=== PATIENT | female | born 2000 | race African-American/Black ===

== ENCOUNTER 2023-11-11 12:02 | Outpatient (REF) | payer BC, SELFPAY ==
[2023-11-11 13:53] LABS: Estimated Average Glucose 103 mg/dL; Hemoglobin A1c % 5.2 % (<6.0)
[2023-11-11 14:01] LABS: Alanine Aminotransferase 12 U/L (0-31); Albumin Level 4.4 g/dL (3.5-5.0); Alkaline Phosphatase 61 U/L (39-117); Aspartate Amino Transferase 16 U/L (5-31); Bilirubin Direct 0.1 mg/dL (0.0-0.5); Bilirubin Total 0.4 mg/dL (0.0-1.0); Total Protein 8.1 g/dL (6.5-8.0)
[2023-11-11 14:08] LABS: Alanine Aminotransferase 12 U/L (0-31); Albumin Level 4.4 g/dL (3.5-5.0); Alkaline Phosphatase 60 U/L (39-117); Anion Gap 13 (12-20); Aspartate Amino Transferase 15 U/L (5-31); Bilirubin Total 0.4 mg/dL (0.0-1.0); Blood Urea Nitrogen 11 mg/dL (9-16); Calcium 9.3 mg/dL (8.4-10.2); Carbon Dioxide 24 mmol/L (22-29); Chloride 104 mmol/L (96-108); Cholesterol 155 mg/dL (<200); Estimated Glomerular Filt Rate > 60; Glucose Random 80 mg/dL (60-115); HDL Cholesterol 47 mg/dL (>40); LDL Cholesterol Calculated 95 mg/dL (<100); Potassium 3.4 mmol/L (3.3-5.1); Sodium 138 mmol/L (135-145); Total Protein 8.2 g/dL (6.5-8.0); Triglycerides 66 mg/dL (<150)
[2023-11-11 15:39] LABS: CT PCR NOT DETECTED (Not Detect.); NG PCR NOT DETECTED (Not Detect.)
[2023-11-12 08:27] LABS: Syphilis Screen Nonreactive (Nonreactive)
[2023-11-12 08:33] LABS: HIV AB/AG Nonreactive (Nonreactive); HIV Num 1 0.06 S/CO (0.00-0.99)
== END 2023-11-11 12:03 | disposition home or self-care (01) ==
LOC: HO.LAB 12:02
PROVIDERS: PCP Internal Medicine; Visit Provider Internal Medicine
DX: Z11.3 Encounter for screening for infections with a predominantly sexual mode of transmission (principal); E66.09 Other obesity due to excess calories; Z68.35 Body mass index [BMI] 35.0-35.9, adult; Z13.1 Encounter for screening for diabetes mellitus; Z13.89 Encounter for screening for other disorder
CPT/HCPCS: 36415; 80053; 80061; 80076; 83036; 84443; 86780; 87389; 87491; 87591

== ENCOUNTER 2025-03-21 10:03 | Outpatient (AMB) | payer OTHER, SELFPAY ==
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
[2025-03-21 10:12] VITALS: BMI 33.4
== END 2025-03-21 10:29 | disposition home or self-care (01) ==
LOC: HO.HGS 10:03
PROVIDERS: PCP Internal Medicine; Visit Provider Surgery
DX: S01.319A Laceration without foreign body of unspecified ear, initial encounter (principal)
CPT/HCPCS: 99203

== ENCOUNTER 2025-04-18 14:40 | Outpatient (AMB) | payer OTHER, SELFPAY ==
[2025-04-18 15:15] VITALS: BMI 34.5
--- NOTE | 2025-04-18 15:15 | A.OFFVIS_ITS ---
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 [facility] Medical History Torn earlobe Surgical History No pertinent past surgical history Family History Paternal Grandfather Pancreatic cancer Social History Patient Tobacco Use Status: Tobacco use Unknown Physical Exam Vital Signs: BMI result Body Mass Index 34.5 Office Procedures AMB Laceration Repair Details: Procedure: Repair of torn earlobe, right Preop diagnosis: Torn earlobe, right She was in supine position with the head turned to the left. The right earlobe was prepped and draped in the usual sterile fashion. The area was infiltrated with lidocaine 1%. I then used the blade 15 to excise the edges of the earlobe tear completely. I then proceeded to reapposed the skin on both the anterior aspect and the posterior aspect of the earlobe with multiple nylon 5 0 simple interrupted sutures. Dressings were applied. The procedure was completed. She tolerated procedure well. There were no immediate complications. There was minimal blood loss. Laceration repair performed by: Yinka Cantor Explained risks and benefits to parent: Yes Informed consent given: Yes Consent signed: Yes Sedation: No Anesthesia: 1% lidocaine Patient tolerated procedure: well Complications: No [id number] Repair 2.6-7.5cm Procedure code (CPT) selection complete Assessment & Plan Assessment & Plan (1) Torn earlobe: Code(s): S01.319A - Laceration without foreign body of unspecified ear, initial encounter Category: Medical Plan: Repair of her torn in lobe was done in the office under local anesthesia. She will return for removal sutures next week. She was given wound care instructions. Coding Level of Care Code Procedure Only Diagnoses Torkizzy kendall S01.319A CPT Codes Office Procedure - Laceration Repair 2: [id number] Repair 2.6-7.5cm ([id number])
--- OUTSIDE RECORDS SUMMARY | 2025-04-18 17:02 | XMS_ITS | Clinical Summary ---
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 Name Role Phone Romeo Vizcarra MD Primary Care Provider [phone] Allergies Active Allergy Reactions Criticality Noted Date Comments Amoxicillin Hives 12/15/2023 Medications No known medications Immunizations Immunization Administration Dates Next Due HPV 9-valent (Gardisil) 9yo to less than 46yo Pfizer SARS-CoV-2 COVID-19, mRNA, LNP-S, preservative free 09/12/2020,08/22/2020 Surgical History Surgery Date Site/Laterality Comments WISDOM TOOTH EXTRACTION 2018 PROCEDURE: HISTORICAL WISDOM TEETH EXTRACTION Medical History Medical History Date Comments Childhood asthma DX:Childhood as thma Prediabetes 07/08/2022 DX:Prediabetes Family History Medical History Relation Name Comments Asthma Brother 1 Asthma Mother Other cancer Paternal Grandfather stomach cancer Asthma Sister Relation Name Status Comments Brother 1 Alive Brother 2 Alive Father Alive Maternal Grandfather Alive Maternal Grandmother Alive Mother Alive Paternal Grandfather Alive Paternal Grandmother Alive Sister Alive Social History Tobacco Use Types Packs/Day Years Used Date Smoking Tobacco: Never Smokeless Tobacco: Never Tobacco Cessation:Counseling Given: Not Answered Alcohol Use Standard Drinks/Week Comments Not Asked 0 (1 standard drink = 0.6 oz pur e alcohol) Comments Unknown Sex and Gender Information Value Date Recorded Sex Assigned at Not on file Legal Sex Female 3:06 PM EST Gender Identity Not on file Sexual Orientation Not on file Last Filed Vital Signs Vital Sign Reading Time Taken Comments Blood Pressure 120/82 07/27/2024 5:06 PM EDT Pulse 89 07/27/2024 5:06 PM EDT Temperature 36.5 C (97.7 F) 07/27/2024 5:06 PM EDT Respiratory Rate - - Oxygen Saturation 98% 07/27/2024 5:06 PM EDT Inhaled Oxygen Concentration - - Weight 85.6 kg (188 lb 12.8 oz) 025 11:10 AM EST Height 160 cm (5' 3 ) 04/28/2024 11:10 AM EST Body Mass Index 33.44 04/28/2024 11:10 AM EST Plan of Treatment Health Maintenance Due Date Last Done Comments DTaP,Tdap,and Td Vaccines (1 - Tdap) 2017 Hepatitis B Vaccines (1 of 3 - 19+ 3-dose series) 2017 Meningococcal B Vaccine (2 o f 2 - Bexsero SCDM 2-dose series) 06/11/2018 12/09/2017 Cervical Cancer Screening: Pap Smear 09/24/2019 Social Influencers of Health Screening 03/31/2022 HPV Vaccines (2 - 3-dose series) 11/26/2023 10/29/2023 Depression Screening 04/21/2024 COVID-19 Vaccine (3 - 2024-2 6 season) 2024 09/12/2020, 08/22/2020 Influenza Vaccine (#1) 2024 Cholesterol Screening (Lipid Panel) 02/18/2027 02/18/2022 RSV Immunization Adult Patients (1 - 1-dose 75+ series) 2073 Meningococcal ACWY Vaccine Aged Out 12/09/2017 N o longer eligible based on patient's age to complete this topic Gonorrhea/Chlamydia Screening Discontinued 04/28/2024 HIV Screening Completed 04/28/2024 Hepatitis C Screening Completed 04/28/2024 HIB Vaccines Aged Out No longer eligi ble based on patient's age to complete this topic Hepatitis A Vaccines Aged Out No long er eligible based on patient's age to complete this topic IPV Vaccines Aged Out No longer eligi ble based on patient's age to complete this topic MMR Vaccines Aged Out No longer eligi ble based on patient's age to complete this topic Pneumococcal Vaccine: Pediatrics (0 to 5 Years) and At-Risk Patients (6 to 49 Years) Aged Out No longer eligible based on patient's age to complete this topic RSV Immunization Patients Under 20 months Aged Out No longer eligible based on patient's age to complete this topic Varicella Vaccines Aged Out No longer eligible based on patient's age to complete this topic Procedures Procedure Name Priority Date/Time Associated Diagnosis Comments HEPATITIS PANEL, ACUTE WITH REFLEX TO CONFIRMATION Routine 04/28/2024 11:30 AM EST Screen for STD (sexually transmitted disease) HIV 1, 2 ANTIBODY, P24 ANTIGEN WITH REFLEX TO DIFFERENTIATION Routine 04/28/2024 11:30 AM EST Screen for STD (sexually transmitted disease) CHLAMYDIA TRACHOMATIS AND NEISSERIA GONORRHOEAE PCR Routine 04/28/2024 11:30 AM EST Screen for STD (sexually transmitted disease) LIPID PANEL Routine 02/18/2022 from Last 3 Months or Most Recently Relevant to Health Maintenance Results * HIV 1,2 antibody, p24 antigen with reflex to differentiation (04/28/2024 11:30 AM EST) HIV Combo AB/AG Negative Negative LAB CHEMISTRY METHOD 04/28/2024 3:23 PM EST [facility] Blood Venous blood specimen / Unknown Venipuncture / Unknown 04/28/2024 11:30 AM EST 04/28/2024 11:30 AM EST Narrative [facility] - 04/28/2024 3:23 PM EST This assay is a 4th generation assay allowing for earlier detection of HIV infection by detecting the presence of the HIV-1 p24 antigen as well as the traditional antibodies to HIV type 1 (including group O) and type 2. Use of a 4th generation assay is the current CDC recommendation for HIV screening. us Romeo Vizcarra MD LAB BLOOD ORDERABLES Final Resu lt [facility] [address] [place] [address], [place] [phone] * Hepatitis panel, acute with reflex to confirmation (04/28/2024 11:30 AM EST) Pathologist [facility] Hepatitis B Surface Ag Negative Negative LAB CHEMISTRY METHOD 04/28/2024 3:30 PM EST [facility] Hepatitis A Antibody IgM Negative Negative LAB CHEMISTRY METHOD 04/28/2024 3:30 PM EST [facility] Hep B Core IgM Negative Negative LAB CHEMISTRY METHOD 04/28/2024 3:30 PM EST [facility] Hepatitis C Antibody Negative Negative LAB CHEMISTRY METHOD 04/28/2024 3:30 PM EST [facility] Blood Venous blood specimen / Unknown Venipuncture / Unknown 04/28/2024 11:30 AM EST 04/28/2024 11:30 AM EST Romeo Vizcarra MD LAB BLOOD ORDERABLES Final Resu lt [facility] [address] [place] [address], [place] [phone] * Chlamydia trachomatis and Neisseria gonorrhoeae molecular study (04/28/2024 11:30 AM EST) [facility] Neisseria gonorrhoeae PCR Negative Negative LAB MOLECULAR DIAGNOSTICS METHOD 04/28/2024 4:22 PM EST [facility] Chlamydia trachomatis PCR Negative Negative LAB MOLECULAR DIAGNOSTICS METHOD 04/28/2024 4:22 PM EST [facility] Swab Urine specimen from urethra / Unknown Non-blood Collection / Unknown 04/28/2024 11:30 AM EST 04/28/2024 11:30 AM EST Romeo Vizcarra MD LAB MICROBIOLOGY - GENERAL TIFF ESTES Final Result [facility] [address] [place] [address], [place] [phone] * Lipid panel (02/18/2022) LDL/HDL Ratio 3 0 - 4 Triglycerides 45 0 - 150 mg/dL Cholesterol 133 0 - 200 mg/dL HDL 48 >=40 mg/dL LDL Cholesterol 76 0 - 100 mg/dL Blood Venous blood specimen / Unknown us Historical Provider LAB BLOOD ORDERABLES Yessy l Result from Last 3 Months or Most Recently Relevant to Health Maintenance [place] [address] [place] [address] Care Teams Rug Cutter Relationship Specialty Start Date End Date Romeo Vizcarra MD [address] [place] [address] PCP - General Internal Medicine 07/20/21
== END 2025-04-18 15:10 | disposition home or self-care (01) ==
PROVIDERS: PCP Internal Medicine; Visit Provider Surgery
DX: S01.319A Laceration without foreign body of unspecified ear, initial encounter (principal)
CPT/HCPCS: 12002

== ENCOUNTER → 2025-04-18 14:40 | Outpatient (BNVA) | payer OTHER, SELFPAY | PROVIDERS: PCP Internal Medicine; Visit Provider Surgery | DX: S01.311A Laceration without foreign body of right ear, initial encounter (principal); X58.XXXA Exposure to other specified factors, initial encounter; Y92.9 Unspecified place or not applicable; Y93.9 Activity, unspecified; Y99.9 Unspecified external cause status | CPT/HCPCS: 12002 ==